=== PATIENT | female | born 1990 | race Caucasian/White ===

== ENCOUNTER 2017-05-25 09:36 | Emergency (ER) | payer MEDICAID ==
[~2017-05-25] VITALS: Ht 154.9 cm; Wt 56.0 kg
[~2017-05-25 09:36] MED LIST: TRIA.1%T TOP
[2017-05-25 09:39] VITALS: BP 174/72; PULSE 89; RESP 18; TEMP 98.3; O2SAT 100
[2017-05-25] MEDS ORDERED: ONDANSETRON HCL 4 MG/2 ML VIAL IV PUSH ONE (10:00)
[2017-05-25] MEDS ORDERED: SODIUM CHLOR 0.9% 1000 ML INJ 1,000 ML IV ONE ×2 (10:00)
[2017-05-25] MEDS ORDERED: MORPHINE SULFATE 4 MG/ML INJ IV PUSH ONE (10:00)
--- NOTE | 2017-05-25 10:00 | PD ---
HPI Chief Complaint: Abdominal Pain Time Seen by Provider: 09:44 Travel History International Travel<30 days: No Contact w/Intl Traveler<30days: No Traveled to known affect area: No History of Present Illness HPI 7-year-old female says she has few days. Feeling weak and dizzy. She has not been eating. She has been trying to take fluids. She is on no medication. She has not been on antibiotics recently. She estimates 100 bowel movements for the last 3 days. She is having crampy abdominal pain PFS Past Medical History Hx Anticoagulant Therapy: No Cardiovascular Problems: No Chemotherapy: No Cerebrovascular Accident: No Diabetes: No Diminished Hearing: No Musculoskeletal: Yes (scoliosis) Respiratory: No ?: Not LMP: 1 WEEK AGO : 1 Para: 0 : 0 Ovarian Cysts: Yes Past Surgical History Other Surgery: Yes (Left foot plates) Social History Alcohol Use: No Tobacco Use: Yes (Down to 3 daily, was 1ppd prior to ) Substance Use: No Allergies-Medications (Allergen,Severity, Reaction): Coded Allergies: No Known Allergies (Verified Adverse Reaction, Unknown, 05/25/17) Reported Meds & Prescriptions Reported Meds & Active Scripts Active Kenalog (Triamcinolone) 0.1 % Cre 1 Applic TOP BID Review of Systems General / Constitutional: Positive: Chills Eyes: No: Diploplia, Blurred Vision HENT: No: Headaches, Vertigo Cardiovascular: No: Chest Pain or Discomfort, Palpitations Respiratory: No: Cough, Shortness of Breath Gastrointestinal: Positive: Nausea, Diarrhea, Abdominal Pain Genitourinary: No: Urgency, Frequency Musculoskeletal: No: Myalgias Skin: No Rash, No Itching Hematologic/Lymphatic: No: Easy Bruising Physical Exam Narrative GENERAL: Well-developed female SKIN: Focused skin assessment warm/dry. HEAD: Atraumatic. Normocephalic. EYES: Pupils equal and round. No scleral icterus. No injection or drainage. ENT: No nasal bleeding or discharge. Mucous membranes pink and moist. NECK: Trachea midline. No JVD. CARDIOVASCULAR: Regular rate and rhythm. No murmur appreciated. RESPIRATORY: No accessory muscle use. Clear to auscultation. Breath sounds equal bilaterally. GASTROINTESTINAL: Abdomen soft, mild diffuse tenderness, nondistended. Hepatic and splenic margins not palpable. Bowel sounds active MUSCULOSKELETAL: No obvious deformities. No clubbing. No cyanosis. No edema. NEUROLOGICAL: Awake and alert. No obvious cranial nerve deficits. Motor grossly within normal limits. Normal speech. PSYCHIATRIC: Appropriate mood and affect; insight and judgment normal. Data Data Last Documented VS Vital Signs Date Time Temp Pulse Resp B/P (MAP) Pulse Ox O2 Delivery O2 Flow Rate FiO2 05/25/17 12:07 69 16 97/63 (74) 100 Room Air 05/25/17 09:39 98.3 Orders Orders Complete Blood Count With Diff (05/25/17 09:55) Comprehensive Metabolic Panel (05/25/17 09:55) Enteric Path (Stool) (05/25/17 09:55) C Diff Toxin Pcr (05/25/17 09:55) Sodium Chlor 0.9% 1000 Ml Inj (Ns 1000 M (05/25/17 10:00) Sodium Chlor 0.9% 1000 Ml Inj (Ns 1000 M (05/25/17 10:00) Ondansetron Inj (Zofran Inj) (05/25/17 10:00) Morphine Inj (Morphine Inj) (05/25/17 10:00) Labs Laboratory Tests Test 05/25/17 10:05 White Blood Count 6.1 TH/MM3 Red Blood Count 4.64 MIL/MM3 Hemoglobin 13.2 GM/DL Hematocrit 40.0 % Mean Corpuscular Volume 86.3 FL Mean Corpuscular Hemoglobin 28.4 PG Mean Corpuscular Hemoglobin Concent 33.0 % Red Cell Distribution Width 12.4 % Platelet Count 207 TH/MM3 Mean Platelet Volume 8.4 FL Neutrophils (%) (Auto) 74.5 % Lymphocytes (%) (Auto) 16.1 % Monocytes (%) (Auto) 8.4 % Eosinophils (%) (Auto) 0.7 % Basophils (%) (Auto) 0.3 % Neutrophils # (Auto) 4.6 TH/MM3 Lymphocytes # (Auto) 1.0 TH/MM3 Monocytes # (Auto) 0.5 TH/MM3 Eosinophils # (Auto) 0.0 TH/MM3 Basophils # (Auto) 0.0 TH/MM3 CBC Comment DIFF FINAL Differential Comment Blood Urea Nitrogen 14 MG/DL Creatinine 0.60 MG/DL Random Glucose 90 MG/DL Total Protein 8.1 GM/DL Albumin 3.9 GM/DL Calcium Level 8.7 MG/DL Alkaline Phosphatase 70 U/L Aspartate Amino Transf (AST/SGOT) 20 U/L Alanine Aminotransferase (ALT/SGPT) 21 U/L Total Bilirubin 0.3 MG/DL Sodium Level 137 MEQ/L Potassium Level 3.6 MEQ/L Chloride Level 104 MEQ/L Carbon Dioxide Level 23.6 MEQ/L Anion Gap 9 MEQ/L Estimat Glomerular Filtration Rate 119 ML/MIN MDM Medical Decision Making Medical Screen Exam Complete: Yes Emergency Medical Condition: Yes Medical Record Reviewed: Yes Differential Diagnosis Differential includes C. difficile, enteritis, viral syndrome, food poisoning Narrative Course White count is 6000. Electrolytes are normal. Patient was given IV fluids. I did give her some morphine for its antimotility effect and also for her crampy pain with good effect. She appears comfortable. She was not able to produce stool for culture or C. difficile analysis. With a normal white count and the good clinical appearance of the I think she is stable for discharge. I will prescribe 8 tablets of Lortab to use for her to antimotility and analgesic effect Diagnosis Primary Impression: Enteritis Scripts Hydrocodone/Acetaminophen (Hydrocodone-Acetamin 5-325 mg) 5 Mg-325 Mg Tablet 1 TAB PO Q6HR for Pain, #8 Prov: Jimbo Hays MD 05/25/17 Ondansetron Odt (Zofran Odt) 4 Mg Tab 4 MG SL Q6HR Y for Nausea/Vomiting, #10 TAB 0 Refills Prov: Jimbo Hays MD 05/25/17 Disposition: 01 DISCHARGE HOME Condition: Stable Jimbo Hays MD May 25, 2017 10:00
[2017-05-25 10:10] LABS: AUTOMATED NEUTROPHIL # 4.6 TH/MM3 (1.8-7.7); BASOPHIL % 0.3 % (0.0-2.0); EOSINOPHIL % 0.7 % (0.0-4.0); HEMOGLOBIN 13.2 GM/DL (11.6-15.3); LYMPH % 16.1 % (9.0-44.0); MEAN CELL VOLUME 86.3 FL (80.0-100.0); MEAN CORPUSCULAR HEMOGLOBIN 28.4 PG (27.0-34.0); MEAN PLATELET VOLUME 8.4 FL (7.0-11.0); MONO % 8.4 % (0.0-8.0); MONOCYTE # 0.5 TH/MM3 (0-0.9); NEUT % 74.5 % (16.0-70.0); PLATELET COUNT 207 TH/MM3 (150-450); RED BLOOD COUNT 4.64 MIL/MM3 (4.00-5.30); RED CELL DISTRIBUTION WIDTH 12.4 % (11.6-17.2); WHITE BLOOD COUNT 6.1 TH/MM3 (4.0-11.0)
[2017-05-25 10:20] LABS: CHLORIDE 104 MEQ/L (98-107); SODIUM (NA) 137 MEQ/L (136-145)
[2017-05-25 10:23] LABS: CALCIUM 8.7 MG/DL (8.5-10.1)
[2017-05-25 10:24] LABS: ALBUMIN 3.9 GM/DL (3.4-5.0); BICARBONATE 23.6 MEQ/L (21.0-32.0); BLOOD UREA NITROGEN 14 MG/DL (7-18); GLUCOSE,RANDOM 90 MG/DL (74-106)
[2017-05-25 10:27] LABS: ALT (GPT) 21 U/L (10-53); AST (GOT) 20 U/L (15-37); GLOMERULAR FILTRATION RATE 119 ML/MIN (>89)
[2017-05-25 10:28] LABS: TOTAL BILIRUBIN ADULT 0.3 MG/DL (0.2-1.0); TOTAL PROTEIN 8.1 GM/DL (6.4-8.2)
[2017-05-25 10:30] LABS: ALKALINE PHOSPHATASE 70 U/L (45-117)
[2017-05-25 12:07] VITALS: BP 97/63; PULSE 69; RESP 16; O2SAT 100
[2017-05-25] MEDS ORDERED: HYDR-3516 PO (12:21)
[2017-05-25] MEDS ORDERED: ZOFR4TAB3 SL (12:21)
== END 2017-05-25 12:31 | disposition home or self-care (01) ==
LOC: PHED 09:36
DX: K52.9 Noninfective gastroenteritis and colitis, unspecified (principal); Z72.0 Tobacco use
CPT/HCPCS: 80053; 85025; 96361; 96374; 96375; 99284; J2270; J2405; J7030